=== PATIENT | female | born 1970 | race Caucasian/White ===

== ENCOUNTER 2023-04-09 19:05 | Emergency (ER) | payer MEDICAID ==
[~2023-04-09] VITALS: Ht 152.4 cm; Wt 56.0 kg
[2023-04-09 19:32] VITALS: BP 138/61; PULSE 73; RESP 18; TEMP 98.3; O2SAT 100
[2023-04-09] MEDS ORDERED: METH-653 MT (20:35)
[2023-04-09] MEDS ORDERED: IBUP-2028 MT (20:42)
== END 2023-04-09 21:10 | disposition home or self-care (01) ==
LOC: ER 19:05
DX: M54.50 Low back pain, unspecified (principal); F41.9 Anxiety disorder, unspecified; Z98.890 Other specified postprocedural states; V49.49XA Driver injured in collision with other motor vehicles in traffic accident, initial encounter; Y93.89 Activity, other specified; Y92.89 Other specified places as the place of occurrence of the external cause; Y99.8 Other external cause status
CPT/HCPCS: 99283